=== PATIENT | female | born 1940 | race Caucasian/White ===

== ENCOUNTER 2017-06-04 16:21 | Inpatient (IN) | payer OTHER ==
[~2017-06-04] VITALS: Ht 167.6 cm; Wt 96.4 kg
[2017-06-04 16:35] VITALS: Ht 167.6 cm; Wt 96.4 kg
[2017-06-04 20:05] LABS: BASOPHIL % 0.3 % (0-2); PLATELET COUNT 210 x10^3mcL (130-400); RED CELL DISTRIBUTION WIDTH 14.5 % (11.5-14.5)
[2017-06-04 20:16] LABS: ALKALINE PHOSPHATASE 142 U/L (46-116); ALT/SGPT 60 U/L (14-59); AST/SGOT 22 U/L (15-37); BILIRUBIN TOTAL 0.4 mg/dL (0.20-1.00); CALCIUM 9.5 mg/dL (8.5-10.1); CARBON DIOXIDE 18.2 mmol/L (21-32); CHLORIDE SERUM 107 mmol/L (98-107); CREATININE SERUM 1.4 mg/dL (0.6-1.0); GLUCOSE SERUM 146 mg/dL (74-106); LIPASE 145 IU/L (73-393); POTASSIUM SERUM 3.9 mmol/L (3.5-5.1); SODIUM SERUM 138 mmol/L (136-145); TOTAL PROTEIN, SERUM 7.1 g/dL (6.4-8.2)
[2017-06-04 20:24] LABS: ALBUMIN 3.2 g/dL (3.4-5.0)
[2017-06-04] MEDS ORDERED: MEDROL4 MG PO (20:53)
[2017-06-04] MEDS ORDERED: MOT400 PO (20:54)
[2017-06-04] MEDS ORDERED: ASPIR LOW81 MG PO (20:55)
[2017-06-04] MEDS ORDERED: DIOVAN320 MG PO (20:56)
[2017-06-04] MEDS ORDERED: NOR5 PO (20:56)
[2017-06-04 21:10] LABS: CHOLESTEROL/HDL RATIO 3.8; MAGNESIUM 2.7 mg/dL (1.8-2.4); PHOSPHOROUS 4.1 mg/dL (2.5-4.9)
[2017-06-04 21:19] LABS: T3 TOTAL 0.54 ng/mL
[2017-06-04 21:20] LABS: FREE T4 1.26 ng/dL (0.76-1.46); FREE THYROXINE INDEX 2.3 ug/dL (1.4-4.5); T4(THYROXINE) 5.9 ug/dL (4.7-13.3)
[2017-06-04 21:38] VITALS: BP 130/64
[2017-06-04 22:07] VITALS: BP 130/64
[2017-06-05 03:21] LABS: microscopic required? NO
[2017-06-05 03:33] LABS: urine erythrocyte NEGATIVE (NEGATIVE)
[2017-06-05 03:42] LABS: AMPHETAMINE QUAL UR NONE DETECTED (NEG <=1000)
[2017-06-05 05:34] VITALS: BP 96/48
[2017-06-05 07:03] LABS: PLATELET COUNT 185 x10^3mcL (130-400); RED CELL DISTRIBUTION WIDTH 14.5 % (11.5-14.5)
[2017-06-05 07:14] LABS: CALCIUM 8.9 mg/dL (8.5-10.1); CARBON DIOXIDE 19.6 mmol/L (21-32); CHLORIDE SERUM 111 mmol/L (98-107); GLUCOSE SERUM 113 mg/dL (74-106); MAGNESIUM 2.4 mg/dL (1.8-2.4); POTASSIUM SERUM 3.9 mmol/L (3.5-5.1); SODIUM SERUM 141 mmol/L (136-145)
[2017-06-05 07:19] LABS: BASOPHIL % 0 % (0-2)
[2017-06-05 09:37] VITALS: BP 120/61
[2017-06-05 09:38] VITALS: BP 114/71
[2017-06-05 12:53] VITALS: BP 126/50
[2017-06-05 18:36] VITALS: BP 124/67
[2017-06-05 21:50] VITALS: BP 126/70
[2017-06-06 05:13] VITALS: BP 113/68
[2017-06-06 06:53] LABS: BASOPHIL % 0.2 % (0-2); PLATELET COUNT 160 x10^3mcL (130-400); RED CELL DISTRIBUTION WIDTH 14.3 % (11.5-14.5)
[2017-06-06 06:57] LABS: CALCIUM 9.1 mg/dL (8.5-10.1); CARBON DIOXIDE 22.4 mmol/L (21-32); CHLORIDE SERUM 111 mmol/L (98-107); CREATININE SERUM 0.8 mg/dL (0.6-1.0); GLUCOSE SERUM 122 mg/dL (74-106); MAGNESIUM 2.3 mg/dL (1.8-2.4); PHOSPHOROUS 2.6 mg/dL (2.5-4.9); POTASSIUM SERUM 4.2 mmol/L (3.5-5.1); SODIUM SERUM 141 mmol/L (136-145)
[2017-06-06 08:40] VITALS: BP 103/64
[2017-06-06 13:25] VITALS: BP 124/66
[2017-06-06] MEDS ORDERED: OMEPRAZOLE40 M1 PO (14:11)
[2017-06-06 14:30] VITALS: BP 124/66
== END 2017-06-06 16:06 | disposition home or self-care (01) | DRG 391 ==
LOC: ED 16:21 → DU 20:31
PROVIDERS: Emergency Medicine; Family Medicine; Internal Medicine Gastroenterology
PROC: 0D758ZZ Dilation of Esophagus, Via Natural or Artificial Opening Endoscopic (ICD-10-PCS; principal; 2017-06-06 07:00)
PROC: 0DB48ZX Excision of Esophagogastric Junction, Via Natural or Artificial Opening Endoscopic, Diagnostic (ICD-10-PCS; 2017-06-06 07:00)
PROC: 0DB68ZX Excision of Stomach, Via Natural or Artificial Opening Endoscopic, Diagnostic (ICD-10-PCS; 2017-06-06 07:00)
DX: K21.0 Gastro-esophageal reflux disease with esophagitis (principal); N17.0 Acute kidney failure with tubular necrosis; K22.4 Dyskinesia of esophagus; K25.9 Gastric ulcer, unspecified as acute or chronic, without hemorrhage or perforation; E86.0 Dehydration; E83.41 Hypermagnesemia; E83.39 Other disorders of phosphorus metabolism; E11.65 Type 2 diabetes mellitus with hyperglycemia; R00.1 Bradycardia, unspecified; G47.00 Insomnia, unspecified; I10 Essential (primary) hypertension; M19.90 Unspecified osteoarthritis, unspecified site; E66.9 Obesity, unspecified; Z68.34 Body mass index [BMI] 34.0-34.9, adult; Z90.49 Acquired absence of other specified parts of digestive tract; Z96.641 Presence of right artificial hip joint; Z79.82 Long term (current) use of aspirin; Z79.1 Long term (current) use of non-steroidal anti-inflammatories (NSAID)
CPT/HCPCS: 43235; 82962; 83880; 84439; J1200; J1610; J2250; J2310; J3010; J3490; J7030; Q0092; Q0162; Q9967

== ENCOUNTER 2017-10-05 07:54 | Inpatient (IN) | payer OTHER ==
[~2017-10-05] VITALS: Ht 162.6 cm; Wt 238.0 kg
[~2017-10-05 07:54] MED LIST: ASPIR LOW81 MG PO; DIOVAN320 MG PO; MEDROL4 MG PO; MOT400 PO; NOR5 PO; OMEPRAZOLE40 M1 PO
[2017-10-05 08:54] LABS: BASOPHIL % 0.3 % (0-2); PLATELET COUNT 202 x10^3mcL (130-400); RED CELL DISTRIBUTION WIDTH 13.5 % (11.5-14.5)
[2017-10-05 09:05] LABS: ALKALINE PHOSPHATASE 102 U/L (46-116); ALT/SGPT 25 U/L (14-59); AST/SGOT 27 U/L (15-37); BILIRUBIN TOTAL 0.5 mg/dL (0.20-1.00); CALCIUM 8.3 mg/dL (8.5-10.1); CARBON DIOXIDE 20.9 mmol/L (21-32); CHLORIDE SERUM 103 mmol/L (98-107); GLUCOSE SERUM 167 mg/dL (74-106); SODIUM SERUM 135 mmol/L (136-145); TOTAL PROTEIN, SERUM 7.2 g/dL (6.4-8.2)
[2017-10-05 09:24] LABS: ALBUMIN 3.2 g/dL (3.4-5.0)
[2017-10-05 11:27] LABS: MAGNESIUM 2.3 mg/dL (1.8-2.4); PHOSPHOROUS 3.2 mg/dL (2.5-4.9)
[2017-10-05 11:31] LABS: CHOLESTEROL/HDL RATIO 3.2
[2017-10-05 11:37] LABS: FREE T4 1.65 ng/dL (0.76-1.46); FREE THYROXINE INDEX 3.9 ug/dL (1.4-4.5); T4(THYROXINE) 10.1 ug/dL (4.7-13.3)
[2017-10-05] MEDS ORDERED: LOSARTAN POTASS1 TA6 PO (12:41)
[2017-10-05 13:28] VITALS: BP 165/93
[2017-10-05] MEDS ORDERED: IBUPROFEN400 MG PO (13:29)
[2017-10-05] MEDS ORDERED: IBUPROFEN800 MG PO (13:31)
[2017-10-05 14:03] LABS: T3 TOTAL 1.08 ng/mL
[2017-10-05 14:15] VITALS: BP 137/70
[2017-10-05 15:30] VITALS: BP 122/90
[2017-10-05 16:02] LABS: RED BLOOD CELLS 3.7 M/mm3 (4.10-5.10)
[2017-10-05 16:16] LABS: AMPHETAMINE QUAL UR NONE DETECTED
[2017-10-05 16:27] LABS: UA SPECIFIC GRAVITY 1.015 (1.005-1.035); microscopic required? YES; urine erythrocyte 1+ (NEGATIVE)
[2017-10-05 18:02] LABS: IRON 19 ug/dL (50-170); TOTAL IRON BINDING CAPACITY 394 ug/dL (250-450)
[2017-10-05 19:21] VITALS: BP 127/83
[2017-10-05 21:28] LABS: CALCIUM 8.3 mg/dL (8.5-10.1); CARBON DIOXIDE 22.3 mmol/L (21-32); CHLORIDE SERUM 104 mmol/L (98-107); CREATININE SERUM 1.1 mg/dL (0.6-1.0); GLUCOSE SERUM 139 mg/dL (74-106); POTASSIUM SERUM 3.1 mmol/L (3.5-5.1); SODIUM SERUM 137 mmol/L (136-145)
[2017-10-05 23:00] VITALS: BP 104/70
[2017-10-06] VITALS (7 sets, daily range): BP systolic 11–114; BP diastolic 46–87
[2017-10-06 05:22] LABS: BASOPHIL % 0.3 % (0-2); PLATELET COUNT 179 x10^3mcL (130-400); RED CELL DISTRIBUTION WIDTH 13.4 % (11.5-14.5)
[2017-10-06 05:33] LABS: CALCIUM 8.6 mg/dL (8.5-10.1); CARBON DIOXIDE 23.3 mmol/L (21-32); CHLORIDE SERUM 105 mmol/L (98-107); CREATININE SERUM 1.1 mg/dL (0.6-1.0); GLUCOSE SERUM 123 mg/dL (74-106); MAGNESIUM 2.5 mg/dL (1.8-2.4); PHOSPHOROUS 3.5 mg/dL (2.5-4.9); POTASSIUM SERUM 3.5 mmol/L (3.5-5.1); SODIUM SERUM 141 mmol/L (136-145)
[2017-10-07 03:17] VITALS: BP 90/51
[2017-10-07 07:44] LABS: BASOPHIL % 0.3 % (0-2); PLATELET COUNT 161 x10^3mcL (130-400); RED CELL DISTRIBUTION WIDTH 13.6 % (11.5-14.5)
[2017-10-07 07:45] VITALS: BP 110/67
[2017-10-07 07:49] LABS: CARBON DIOXIDE 24.1 mmol/L (21-32); CHLORIDE SERUM 107 mmol/L (98-107); CREATININE SERUM 1.3 mg/dL (0.6-1.0); GLUCOSE SERUM 111 mg/dL (74-106); MAGNESIUM 2.5 mg/dL (1.8-2.4); PHOSPHOROUS 3.5 mg/dL (2.5-4.9); POTASSIUM SERUM 3.2 mmol/L (3.5-5.1); SODIUM SERUM 141 mmol/L (136-145)
[2017-10-07 11:32] VITALS: BP 107/61
[2017-10-07 15:30] VITALS: BP 112/61
[2017-10-07 19:15] VITALS: BP 114/78
[2017-10-07 23:48] VITALS: BP 116/74
[2017-10-08] VITALS (7 sets, daily range): BP systolic 107–122; BP diastolic 60–74
[2017-10-08 07:01] LABS: BASOPHIL % 0.6 % (0-2); PLATELET COUNT 169 x10^3mcL (130-400); RED CELL DISTRIBUTION WIDTH 13.8 % (11.5-14.5)
[2017-10-08 07:08] LABS: CALCIUM 7.5 mg/dL (8.5-10.1); CARBON DIOXIDE 28.1 mmol/L (21-32); CHLORIDE SERUM 106 mmol/L (98-107); CREATININE SERUM 1.1 mg/dL (0.6-1.0); GLUCOSE SERUM 116 mg/dL (74-106); MAGNESIUM 2.2 mg/dL (1.8-2.4); PHOSPHOROUS 3.5 mg/dL (2.5-4.9); POTASSIUM SERUM 3.2 mmol/L (3.5-5.1); SODIUM SERUM 142 mmol/L (136-145)
[2017-10-09] VITALS (10 sets, daily range): BP systolic 82–148; BP diastolic 51–103
[2017-10-09 06:05] LABS: BASOPHIL % 0.5 % (0-2); PLATELET COUNT 177 x10^3mcL (130-400); RED CELL DISTRIBUTION WIDTH 13.8 % (11.5-14.5); SODIUM SERUM 141 mmol/L (136-145)
[2017-10-09 06:06] LABS: CARBON DIOXIDE 28.8 mmol/L (21-32); CHLORIDE SERUM 105 mmol/L (98-107); GLUCOSE SERUM 116 mg/dL (74-106); PHOSPHOROUS 2.8 mg/dL (2.5-4.9); POTASSIUM SERUM 3.5 mmol/L (3.5-5.1)
[2017-10-09 14:47] LABS: TOTAL PROTEIN, SERUM 6.7 g/dL (6.4-8.2)
[2017-10-09 16:47] LABS: APPEARANCE FLUID HAZY; COLOR FLUID PALE YELLOW; SOURCE FLUID THORACENTESIS
[2017-10-09 16:49] LABS: LYMPHOCYTE FLUID 70 %; RBC FLUID 736 /cumm; WBC FLUID 122 /cumm
[2017-10-10] VITALS (17 sets, daily range): BP systolic 82–120; BP diastolic 46–69
[2017-10-10 05:50] LABS: CALCIUM 8.7 mg/dL (8.5-10.1); CARBON DIOXIDE 29.9 mmol/L (21-32); CHLORIDE SERUM 108 mmol/L (98-107); GLUCOSE SERUM 121 mg/dL (74-106); MAGNESIUM 2.2 mg/dL (1.8-2.4); PHOSPHOROUS 2.6 mg/dL (2.5-4.9); POTASSIUM SERUM 3.9 mmol/L (3.5-5.1); SODIUM SERUM 146 mmol/L (136-145)
[2017-10-10 06:20] LABS: BASOPHIL % 0.6 % (0-2); PLATELET COUNT 149 x10^3mcL (130-400); RED CELL DISTRIBUTION WIDTH 13.9 % (11.5-14.5)
[2017-10-11] VITALS (18 sets, daily range): BP systolic 72–146; BP diastolic 42–70
[2017-10-11 05:03] LABS: BASOPHIL % 0.4 % (0-2); PLATELET COUNT 173 x10^3mcL (130-400); RED CELL DISTRIBUTION WIDTH 13.7 % (11.5-14.5)
[2017-10-11 05:14] LABS: CARBON DIOXIDE 35.2 mmol/L (21-32); CHLORIDE SERUM 101 mmol/L (98-107); GLUCOSE SERUM 159 mg/dL (74-106); MAGNESIUM 1.7 mg/dL (1.8-2.4); PHOSPHOROUS 1.8 mg/dL (2.5-4.9); SODIUM SERUM 143 mmol/L (136-145)
[2017-10-11 05:22] LABS: POTASSIUM SERUM 2.1 mmol/L (3.5-5.1)
[2017-10-11 17:57] LABS: CALCIUM 7.9 mg/dL (8.5-10.1); CARBON DIOXIDE 33.4 mmol/L (21-32); CHLORIDE SERUM 102 mmol/L (98-107); GLUCOSE SERUM 118 mg/dL (74-106); POTASSIUM SERUM 3.3 mmol/L (3.5-5.1); SODIUM SERUM 140 mmol/L (136-145)
[2017-10-12] VITALS (17 sets, daily range): BP systolic 79–109; BP diastolic 43–71
[2017-10-12 05:24] LABS: BASOPHIL % 0.4 % (0-2); PLATELET COUNT 184 x10^3mcL (130-400); RED CELL DISTRIBUTION WIDTH 14.2 % (11.5-14.5)
[2017-10-12 05:36] LABS: CALCIUM 8.3 mg/dL (8.5-10.1); CARBON DIOXIDE 30.3 mmol/L (21-32); CHLORIDE SERUM 104 mmol/L (98-107); CREATININE SERUM 0.8 mg/dL (0.6-1.0); GLUCOSE SERUM 122 mg/dL (74-106); MAGNESIUM 2.3 mg/dL (1.8-2.4); PHOSPHOROUS 2.1 mg/dL (2.5-4.9); SODIUM SERUM 141 mmol/L (136-145)
[2017-10-13] VITALS (16 sets, daily range): BP systolic 66–120; BP diastolic 42–72
[2017-10-13 05:30] LABS: BASOPHIL % 0.2 % (0-2); PLATELET COUNT 190 x10^3mcL (130-400)
[2017-10-13 05:31] LABS: RED CELL DISTRIBUTION WIDTH 14.8 % (11.5-14.5)
[2017-10-13 05:41] LABS: CALCIUM 8.9 mg/dL (8.5-10.1); CARBON DIOXIDE 32.3 mmol/L (21-32); CHLORIDE SERUM 104 mmol/L (98-107); CREATININE SERUM 0.8 mg/dL (0.6-1.0); GLUCOSE SERUM 147 mg/dL (74-106); MAGNESIUM 2.1 mg/dL (1.8-2.4); PHOSPHOROUS 1.8 mg/dL (2.5-4.9); SODIUM SERUM 140 mmol/L (136-145)
[2017-10-13 05:45] LABS: POTASSIUM SERUM 2.9 mmol/L (3.5-5.1)
[2017-10-14] VITALS (18 sets, daily range): BP systolic 94–121; BP diastolic 48–82
[2017-10-14 05:22] LABS: BASOPHIL % 0.3 % (0-2); PLATELET COUNT 190 x10^3mcL (130-400)
[2017-10-14 05:23] LABS: RED CELL DISTRIBUTION WIDTH 14.7 % (11.5-14.5)
[2017-10-14 05:32] LABS: CALCIUM 8.5 mg/dL (8.5-10.1); CARBON DIOXIDE 36.2 mmol/L (21-32); CHLORIDE SERUM 103 mmol/L (98-107); CREATININE SERUM 0.8 mg/dL (0.6-1.0); GLUCOSE SERUM 153 mg/dL (74-106); MAGNESIUM 1.9 mg/dL (1.8-2.4); PHOSPHOROUS 1.8 mg/dL (2.5-4.9); SODIUM SERUM 140 mmol/L (136-145)
[2017-10-14 05:33] LABS: POTASSIUM SERUM 2.9 mmol/L (3.5-5.1)
[2017-10-14 12:58] LABS: CALCIUM 8.3 mg/dL (8.5-10.1); CARBON DIOXIDE 37.1 mmol/L (21-32); CHLORIDE SERUM 103 mmol/L (98-107); CREATININE SERUM 0.8 mg/dL (0.6-1.0); GLUCOSE SERUM 131 mg/dL (74-106); POTASSIUM SERUM 3.4 mmol/L (3.5-5.1); SODIUM SERUM 141 mmol/L (136-145)
[2017-10-15] VITALS (18 sets, daily range): BP systolic 90–145; BP diastolic 51–95
[2017-10-15 05:45] LABS: BASOPHIL % 0.4 % (0-2); PLATELET COUNT 161 x10^3mcL (130-400)
[2017-10-15 05:46] LABS: RED CELL DISTRIBUTION WIDTH 15.3 % (11.5-14.5)
[2017-10-15 05:57] LABS: CALCIUM 8.5 mg/dL (8.5-10.1); CARBON DIOXIDE 34.8 mmol/L (21-32); CHLORIDE SERUM 102 mmol/L (98-107); CREATININE SERUM 0.9 mg/dL (0.6-1.0); GLUCOSE SERUM 141 mg/dL (74-106); PHOSPHOROUS 2.2 mg/dL (2.5-4.9); POTASSIUM SERUM 3.1 mmol/L (3.5-5.1); SODIUM SERUM 140 mmol/L (136-145)
[2017-10-16] VITALS (17 sets, daily range): BP systolic 100–130; BP diastolic 55–77
[2017-10-16 06:08] LABS: CALCIUM 8.3 mg/dL (8.5-10.1); CARBON DIOXIDE 34.6 mmol/L (21-32); CHLORIDE SERUM 104 mmol/L (98-107); CREATININE SERUM 0.8 mg/dL (0.6-1.0); GLUCOSE SERUM 115 mg/dL (74-106); MAGNESIUM 1.9 mg/dL (1.8-2.4); PHOSPHOROUS 2.6 mg/dL (2.5-4.9); SODIUM SERUM 145 mmol/L (136-145)
[2017-10-16 06:10] LABS: BASOPHIL % 0.2 % (0-2); PLATELET COUNT 165 x10^3mcL (130-400)
[2017-10-16 06:11] LABS: RED CELL DISTRIBUTION WIDTH 15.1 % (11.5-14.5)
[2017-10-16 15:40] LABS: CALCIUM 8.2 mg/dL (8.5-10.1); CARBON DIOXIDE 34.4 mmol/L (21-32); CHLORIDE SERUM 104 mmol/L (98-107); CREATININE SERUM 0.8 mg/dL (0.6-1.0); GLUCOSE SERUM 131 mg/dL (74-106); POTASSIUM SERUM 3.4 mmol/L (3.5-5.1); SODIUM SERUM 143 mmol/L (136-145)
[2017-10-17] VITALS (11 sets, daily range): BP systolic 90–113; BP diastolic 52–83; Ht 162.6 cm; Wt 238.0 kg
[2017-10-17 05:43] LABS: BASOPHIL % 0.1 % (0-2); PLATELET COUNT 184 x10^3mcL (130-400)
[2017-10-17 05:47] LABS: RED CELL DISTRIBUTION WIDTH 15.5 % (11.5-14.5)
[2017-10-17 05:52] LABS: CALCIUM 8.7 mg/dL (8.5-10.1); CARBON DIOXIDE 32.7 mmol/L (21-32); CHLORIDE SERUM 104 mmol/L (98-107); CREATININE SERUM 0.8 mg/dL (0.6-1.0); GLUCOSE SERUM 95 mg/dL (74-106); MAGNESIUM 2.2 mg/dL (1.8-2.4); PHOSPHOROUS 3.4 mg/dL (2.5-4.9); SODIUM SERUM 144 mmol/L (136-145)
[2017-10-18 03:49] VITALS: BP 124/58
[2017-10-18 05:36] LABS: BASOPHIL % 0.4 % (0-2); PLATELET COUNT 214 x10^3mcL (130-400)
[2017-10-18 05:39] LABS: RED CELL DISTRIBUTION WIDTH 15.7 % (11.5-14.5)
[2017-10-18 05:53] LABS: CARBON DIOXIDE 31.5 mmol/L (21-32); CHLORIDE SERUM 109 mmol/L (98-107); CREATININE SERUM 0.8 mg/dL (0.6-1.0); GLUCOSE SERUM 78 mg/dL (74-106); MAGNESIUM 2.2 mg/dL (1.8-2.4); PHOSPHOROUS 3.4 mg/dL (2.5-4.9); POTASSIUM SERUM 3.6 mmol/L (3.5-5.1); SODIUM SERUM 146 mmol/L (136-145)
[2017-10-18 07:29] VITALS: BP 127/72
[2017-10-18 11:30] VITALS: BP 108/67
[2017-10-18 15:37] VITALS: BP 129/81
[2017-10-18 18:00] VITALS: BP 115/82
[2017-10-18 21:06] VITALS: BP 130/76
[2017-10-19 05:25] VITALS: BP 125/69
[2017-10-19 06:09] LABS: BASOPHIL % 0.6 % (0-2); PLATELET COUNT 264 x10^3mcL (130-400)
[2017-10-19 06:30] LABS: CALCIUM 9.3 mg/dL (8.5-10.1); CARBON DIOXIDE 28.8 mmol/L (21-32); CHLORIDE SERUM 108 mmol/L (98-107); CREATININE SERUM 0.7 mg/dL (0.6-1.0); GLUCOSE SERUM 85 mg/dL (74-106); PHOSPHOROUS 2.7 mg/dL (2.5-4.9); SODIUM SERUM 145 mmol/L (136-145)
[2017-10-19 06:46] LABS: RED CELL DISTRIBUTION WIDTH 15.5 % (11.5-14.5)
[2017-10-19 08:59] VITALS: BP 135/75
[2017-10-19 12:50] VITALS: BP 131/82
[2017-10-19 17:10] VITALS: BP 124/61
[2017-10-19 21:30] VITALS: BP 114/66
[2017-10-20] VITALS (7 sets, daily range): BP systolic 113–133; BP diastolic 65–79
[2017-10-20 06:36] LABS: BASOPHIL % 0.7 % (0-2); PLATELET COUNT 289 x10^3mcL (130-400); RED CELL DISTRIBUTION WIDTH 15.9 % (11.5-14.5)
[2017-10-20 06:50] LABS: CARBON DIOXIDE 30.4 mmol/L (21-32); CHLORIDE SERUM 108 mmol/L (98-107); CREATININE SERUM 0.7 mg/dL (0.6-1.0); GLUCOSE SERUM 89 mg/dL (74-106); PHOSPHOROUS 2.8 mg/dL (2.5-4.9); POTASSIUM SERUM 3.3 mmol/L (3.5-5.1); SODIUM SERUM 141 mmol/L (136-145)
[2017-10-21 00:02] VITALS: BP 114/73
[2017-10-21 05:15] VITALS: BP 113/71
[2017-10-21 06:47] LABS: PLATELET COUNT 319 x10^3mcL (130-400)
[2017-10-21 07:15] LABS: RED CELL DISTRIBUTION WIDTH 15.3 % (11.5-14.5)
[2017-10-21 07:17] LABS: CALCIUM 8.8 mg/dL (8.5-10.1); CARBON DIOXIDE 30.4 mmol/L (21-32); CHLORIDE SERUM 110 mmol/L (98-107); CREATININE SERUM 0.7 mg/dL (0.6-1.0); GLUCOSE SERUM 99 mg/dL (74-106); PHOSPHOROUS 2.8 mg/dL (2.5-4.9); POTASSIUM SERUM 3.2 mmol/L (3.5-5.1); SODIUM SERUM 143 mmol/L (136-145)
[2017-10-21 09:09] VITALS: BP 106/60
[2017-10-21 17:06] VITALS: BP 122/70
[2017-10-21 20:28] VITALS: BP 111/76
[2017-10-22 04:15] VITALS: BP 125/74
[2017-10-22 06:30] LABS: CALCIUM 8.8 mg/dL (8.5-10.1); CARBON DIOXIDE 27.3 mmol/L (21-32); CHLORIDE SERUM 109 mmol/L (98-107); CREATININE SERUM 0.7 mg/dL (0.6-1.0); GLUCOSE SERUM 99 mg/dL (74-106); MAGNESIUM 1.8 mg/dL (1.8-2.4); PHOSPHOROUS 2.5 mg/dL (2.5-4.9); POTASSIUM SERUM 3.5 mmol/L (3.5-5.1); SODIUM SERUM 144 mmol/L (136-145)
[2017-10-22 06:41] LABS: BASOPHIL % 1.1 % (0-2); PLATELET COUNT 329 x10^3mcL (130-400)
[2017-10-22 06:55] LABS: RED CELL DISTRIBUTION WIDTH 16.3 % (11.5-14.5)
[2017-10-22 08:00] VITALS: BP 114/69
[2017-10-22 12:56] VITALS: BP 121/76
[2017-10-22 16:35] VITALS: BP 126/96
[2017-10-22 21:40] VITALS: BP 105/77
[2017-10-23 05:50] VITALS: BP 124/61
[2017-10-23 06:21] LABS: BASOPHIL % 0.9 % (0-2); PLATELET COUNT 348 x10^3mcL (130-400)
[2017-10-23 06:40] LABS: CALCIUM 8.9 mg/dL (8.5-10.1); CARBON DIOXIDE 26.8 mmol/L (21-32); CHLORIDE SERUM 108 mmol/L (98-107); GLUCOSE SERUM 90 mg/dL (74-106); MAGNESIUM 1.8 mg/dL (1.8-2.4); PHOSPHOROUS 2.7 mg/dL (2.5-4.9); POTASSIUM SERUM 3.3 mmol/L (3.5-5.1); SODIUM SERUM 142 mmol/L (136-145)
[2017-10-23 06:48] LABS: CREATININE SERUM 0.7 mg/dL (0.6-1.0)
[2017-10-23 06:54] LABS: RED CELL DISTRIBUTION WIDTH 16.2 % (11.5-14.5)
[2017-10-23 08:37] VITALS: BP 128/81
[2017-10-23 10:17] VITALS: BP 128/81
[2017-10-23 12:18] VITALS: BP 121/63
[2017-10-23] MEDS ORDERED: METOPROLOL TART25 M1 PO (13:57)
[2017-10-23] MEDS ORDERED: XARELTO20 M1 PO (13:58)
[2017-10-23] MEDS ORDERED: LIPI10 PO (13:58)
[2017-10-23] MEDS ORDERED: BAY PO (13:58)
[2017-10-23] MEDS ORDERED: COR200 PO (13:58)
[2017-10-23] MEDS ORDERED: DIG125 PO (14:34)
[2017-10-23] MEDS ORDERED: ZES5 PO (14:34)
[2017-10-23 15:29] VITALS: BP 124/82
== END 2017-10-23 18:27 | DRG 207 ==
LOC: ED 07:54 → IC 09:47 → DU 09:47 → IC 10:47 → DU 10-18 18:19
PROVIDERS: Emergency Medicine; Family Medicine; Family Medicine Sports Medicine; Student in an Organized Health Care Education/Training Program
PROC: 0W993ZZ Drainage of Right Pleural Cavity, Percutaneous Approach (ICD-10-PCS; principal; 2017-10-08)
PROC: 5A1955Z Respiratory Ventilation, Greater than 96 Consecutive Hours (ICD-10-PCS; 2017-10-09)
PROC: 0BH17EZ Insertion of Endotracheal Airway into Trachea, Via Natural or Artificial Opening (ICD-10-PCS; 2017-10-09)
PROC: 0W9930Z Drainage of Right Pleural Cavity with Drainage Device, Percutaneous Approach (ICD-10-PCS; 2017-10-09)
PROC: 05HN33Z Insertion of Infusion Device into Left Internal Jugular Vein, Percutaneous Approach (ICD-10-PCS; 2017-10-10)
PROC: B544ZZA Ultrasonography of Left Jugular Veins, Guidance (ICD-10-PCS; 2017-10-10)
DX: J69.0 Pneumonitis due to inhalation of food and vomit (principal); I50.43 Acute on chronic combined systolic (congestive) and diastolic (congestive) heart failure; N17.0 Acute kidney failure with tubular necrosis; J96.01 Acute respiratory failure with hypoxia; J90 Pleural effusion, not elsewhere classified; J93.83 Other pneumothorax; I48.91 Unspecified atrial fibrillation; I10 Essential (primary) hypertension; I11.0 Hypertensive heart disease with heart failure; E11.65 Type 2 diabetes mellitus with hyperglycemia; E11.51 Type 2 diabetes mellitus with diabetic peripheral angiopathy without gangrene; E87.8 Other disorders of electrolyte and fluid balance, not elsewhere classified; D64.9 Anemia, unspecified; K21.9 Gastro-esophageal reflux disease without esophagitis; E66.9 Obesity, unspecified; Z68.38 Body mass index [BMI] 38.0-38.9, adult
CPT/HCPCS: 32555; 36556; 36600; 82947; 82962; 83880; 84439; 92526-GN; 92610-GN; 94150; 97110-GP; 97116-GP; 97530-GP; A4628; A7042; C1729; C9113; J0282; J1642; J1940; J1956; J2001; J2250; J2270; J2370; J2405; J2543; J2704; J3010; J3475; J3480; J3490; J7030; J7050; J7060; J7620; Q0092

== ENCOUNTER 2017-12-03 13:03 | Emergency (ER) | payer OTHER ==
[~2017-12-03] VITALS: Ht 157.5 cm; Wt 90.7 kg
[~2017-12-03 13:03] MED LIST changes: +BAY PO; +COR200 PO; +DIG125 PO; +IBUPROFEN400 MG PO; +IBUPROFEN800 MG PO; +LIPI10 PO; +LOSARTAN POTASS1 TA6 PO; +METOPROLOL TART25 M1 PO; +XARELTO20 M1 PO; +ZES5 PO
[2017-12-03 13:18] VITALS: Ht 157.5 cm; Wt 90.7 kg
[2017-12-03 15:30] VITALS: BP 112/82
== END 2017-12-03 15:30 | disposition home or self-care (01) ==
LOC: ED 13:03
DX: M79.604 Pain in right leg (principal); M79.1 Myalgia; I10 Essential (primary) hypertension
CPT/HCPCS: J2270; Q0092

== ENCOUNTER 2018-01-25 11:50 | Inpatient (IN) | payer OTHER ==
[~2018-01-25] VITALS: Ht 165.1 cm; Wt 92.1 kg
[2018-01-25 11:59] VITALS: Ht 165.1 cm; Wt 92.1 kg
[2018-01-25 12:39] LABS: BASOPHIL % 0.3 % (0-2); PLATELET COUNT 200 x10^3mcL (130-400); RED CELL DISTRIBUTION WIDTH 18.8 % (11.5-14.5)
[2018-01-25 12:43] LABS: ALKALINE PHOSPHATASE 119 U/L (46-116); ALT/SGPT 53 U/L (14-59); AST/SGOT 59 U/L (15-37); BILIRUBIN TOTAL 0.25 mg/dL (0.20-1.00); CALCIUM 8.4 mg/dL (8.5-10.1); CHLORIDE SERUM 100 mmol/L (98-107); CREATININE SERUM 3.8 mg/dL (0.6-1.0); GLUCOSE SERUM 155 mg/dL (74-106); HDL CHOLESTEROL 38 mg/dL (40-60); LIPASE 118 IU/L (73-393); POTASSIUM SERUM 5.2 mmol/L (3.5-5.1); SODIUM SERUM 133 mmol/L (136-145); TOTAL PROTEIN, SERUM 6.8 g/dL (6.4-8.2); TRIGLYCERIDES 162 mg/dL (<150)
[2018-01-25 12:49] LABS: ALBUMIN 2.6 g/dL (3.4-5.0); CHOLESTEROL 102 mg/dL (<200); CHOLESTEROL/HDL RATIO 2.7
[2018-01-25 12:53] LABS: FREE T4 1.18 ng/dL (0.76-1.46); T4(THYROXINE) 8.2 ug/dL (4.7-13.3)
[2018-01-25 13:27] LABS: T3 TOTAL 0.49 ng/mL
[2018-01-25 15:43] LABS: PHOSPHOROUS 6.2 mg/dL (2.5-4.9)
[2018-01-25 17:40] VITALS: BP 131/69
[2018-01-25 18:10] VITALS: BP 113/52
[2018-01-25 18:27] LABS: microscopic required? NO
[2018-01-25 18:39] LABS: urine erythrocyte NEGATIVE (NEGATIVE)
[2018-01-25] MEDS ORDERED: XARELTO20 M1 PO (18:47)
[2018-01-25] MEDS ORDERED: FERROUS SULFAT325 M2 PO (18:50)
[2018-01-25] MEDS ORDERED: GABAPENTIN300 M4 PO (18:50)
[2018-01-25] MEDS ORDERED: LASIX40 MG PO (18:51)
[2018-01-25 19:30] VITALS: BP 114/32
[2018-01-25 19:40] LABS: AMPHETAMINE QUAL UR NONE DETECTED (See below)
[2018-01-26 01:59] LABS: CALCIUM 8.7 mg/dL (8.5-10.1); CARBON DIOXIDE 22.1 mmol/L (21-32); CHLORIDE SERUM 106 mmol/L (98-107); CREATININE SERUM 2.6 mg/dL (0.6-1.0); GLUCOSE SERUM 124 mg/dL (74-106); POTASSIUM SERUM 3.1 mmol/L (3.5-5.1); SODIUM SERUM 140 mmol/L (136-145)
[2018-01-26 05:00] VITALS: BP 89/69
[2018-01-26 05:14] LABS: CARBON DIOXIDE 20.6 mmol/L (21-32); CHLORIDE SERUM 106 mmol/L (98-107); CREATININE SERUM 2.3 mg/dL (0.6-1.0); GLUCOSE SERUM 129 mg/dL (74-106); MAGNESIUM 2.2 mg/dL (1.8-2.4); PHOSPHOROUS 5.3 mg/dL (2.5-4.9); POTASSIUM SERUM 3.5 mmol/L (3.5-5.1); SODIUM SERUM 141 mmol/L (136-145)
[2018-01-26 05:15] LABS: BASOPHIL % 0.6 % (0-2); PLATELET COUNT 204 x10^3mcL (130-400); RED CELL DISTRIBUTION WIDTH 18.6 % (11.5-14.5)
[2018-01-26 11:15] VITALS: BP 100/37
[2018-01-26 15:50] VITALS: BP 97/51
[2018-01-26 19:30] VITALS: BP 92/51
[2018-01-27 05:00] VITALS: BP 85/52
[2018-01-27 06:45] LABS: CALCIUM 8.3 mg/dL (8.5-10.1); CARBON DIOXIDE 13.1 mmol/L (21-32); CHLORIDE SERUM 107 mmol/L (98-107); CREATININE SERUM 2.1 mg/dL (0.6-1.0); GLUCOSE SERUM 287 mg/dL (74-106); MAGNESIUM 2.1 mg/dL (1.8-2.4); POTASSIUM SERUM 3.1 mmol/L (3.5-5.1); SODIUM SERUM 142 mmol/L (136-145)
[2018-01-27 06:55] LABS: IRON 104 ug/dL (50-170)
[2018-01-27 07:00] LABS: TOTAL IRON BINDING CAPACITY 201 ug/dL (250-450)
[2018-01-27 07:45] VITALS: BP 116/38
[2018-01-27 09:20] VITALS: BP 118/73
[2018-01-27 11:00] VITALS: BP 83/54
[2018-01-27 11:35] VITALS: BP 67/42
== END 2018-01-27 14:20 | disposition expired | DRG 871 ==
LOC: ED 11:50 → IC 13:55
PROVIDERS: Internal Medicine; Specialist
PROC: 05HM33Z Insertion of Infusion Device into Right Internal Jugular Vein, Percutaneous Approach (ICD-10-PCS; 2018-01-25)
PROC: B543ZZA Ultrasonography of Right Jugular Veins, Guidance (ICD-10-PCS; 2018-01-25)
PROC: 0BH17EZ Insertion of Endotracheal Airway into Trachea, Via Natural or Artificial Opening (ICD-10-PCS; principal; 2018-01-27)
PROC: 5A1935Z Respiratory Ventilation, Less than 24 Consecutive Hours (ICD-10-PCS; 2018-01-27)
DX: A41.9 Sepsis, unspecified organism (principal); R65.21 Severe sepsis with septic shock; N17.0 Acute kidney failure with tubular necrosis; J69.0 Pneumonitis due to inhalation of food and vomit; E43 Unspecified severe protein-calorie malnutrition; J96.00 Acute respiratory failure, unspecified whether with hypoxia or hypercapnia; E87.1 Hypo-osmolality and hyponatremia; E87.2 Acidosis; I42.9 Cardiomyopathy, unspecified; R00.1 Bradycardia, unspecified; I95.9 Hypotension, unspecified; E86.0 Dehydration; T44.7X5A Adverse effect of beta-adrenoreceptor antagonists, initial encounter; R57.0 Cardiogenic shock; I12.9 Hypertensive chronic kidney disease with stage 1 through stage 4 chronic kidney disease, or unspecified chronic kidney disease; N18.9 Chronic kidney disease, unspecified; K59.00 Constipation, unspecified; I48.0 Paroxysmal atrial fibrillation; E87.5 Hyperkalemia; R13.10 Dysphagia, unspecified; R41.0 Disorientation, unspecified; E11.65 Type 2 diabetes mellitus with hyperglycemia; E78.5 Hyperlipidemia, unspecified; E66.9 Obesity, unspecified; Z68.33 Body mass index [BMI] 33.0-33.9, adult; Z79.82 Long term (current) use of aspirin; Z79.01 Long term (current) use of anticoagulants; Z96.641 Presence of right artificial hip joint; Z22.322 Carrier or suspected carrier of Methicillin resistant Staphylococcus aureus; Z66 Do not resuscitate; Y92.009 Unspecified place in unspecified non-institutional (private) residence as the place of occurrence of the external cause
CPT/HCPCS: 36556; 36600; 82962; 83880; 84439; A4628; J0461; J1162; J1170; J1265; J1610; J1642; J1815; J2001; J2060; J2250; J2405; J2543; J3480; J3490; J7030; J7040; J7620; Q0092